=== PATIENT | female | born 1955 | race Caucasian/White ===

== ENCOUNTER 2023-08-01 06:22 | Day surgery (SDC) | payer MEDICARE, BC ==
[2023-07-23 14:27] VITALS: BMI 37.8
[2023-08-01] MEDS ORDERED: EPINEPHrine 1 MG/ML VIAL ONE (10:35)
[2023-08-01] MEDS ORDERED: PROPOFOL 20 ML ONE (10:49)
[2023-08-01] MEDS ORDERED: Ondansetron PF 4 MG/2 ML Vial ONE (10:49)
[2023-08-01] MEDS ORDERED: Lidocaine 1% PF 5 ML VIAL ONE (10:49)
[2023-08-01] MEDS ORDERED: Dexamethasone 20 MG/5 ML VIAL ONE (10:49)
[2023-08-01] MEDS ORDERED: Midazolam HCl 2 mg/2 ml Vial ONE (10:50)
[2023-08-01] MEDS ORDERED: fentaNYL 50 mcg/mL 1 mL Vial ONE (10:50)
[2023-08-01] MEDS ORDERED: Labetalol HCl 100 MG/20 ML VIAL ONE (11:18)
[2023-08-01] MEDS: Ipratropium/Albuterol 3 ML NEB NEB SCH (11:45)
[2023-08-01] MEDS ORDERED: Ipratropium/Albuterol 3 ML NEB ONE (11:45)
[2023-08-01] MEDS ORDERED: Iopamidol 300 61% 100 ML VIAL FS ONE (12:49)
== END 2023-08-01 13:15 | disposition home or self-care (01) ==
LOC: CSHSDC 06:22
PROVIDERS: ATTEND Otolaryngology Plastic Surgery within the Head & Neck
PROC: 0CBV8ZX Excision of Left Vocal Cord, Via Natural or Artificial Opening Endoscopic, Diagnostic (ICD-10-PCS; principal; 2023-08-01)
DX: J38.01 Paralysis of vocal cords and larynx, unilateral (principal); J38.3 Other diseases of vocal cords; R49.0 Dysphonia; J44.9 Chronic obstructive pulmonary disease, unspecified; I10 Essential (primary) hypertension; F17.210 Nicotine dependence, cigarettes, uncomplicated; E66.9 Obesity, unspecified; Z68.37 Body mass index [BMI] 37.0-37.9, adult; Z96.643 Presence of artificial hip joint, bilateral; Z88.5 Allergy status to narcotic agent
CPT/HCPCS: 31536; 70491; 71260; 82565; 94640; J0171; J1100; J2250; J2405; J2704; J3010; Q9967; 88305; 88331; J7620